=== PATIENT | male | born 1955 | race Caucasian/White ===

== ENCOUNTER → 2018-03-04 | Outpatient (CLI) | payer OTHER ==
[~2018-03-04] VITALS: Ht 175.3 cm; Wt 104.3 kg
[~2018-03-04] MED LIST: ASPI81TA59 PO; LISI-338 PO; METO25TA2 PO; REGADENOSON 0.4 MG/5 ML DISP.SYRIN. IV ONE
--- NOTE | 2018-03-04 11:42 | CARD ---
MR#: [id number] Date of Study: 03/04/2018 Ordering Physician: XAVIER GALDAMEZ, Referring Physician: XAVIER GALDAMEZ, Tech: Marilee Branham APPROVED REPORT EXAM: Two-dimensional and M-mode echocardiogram with Doppler and color Doppler. Other Information Quality : GoodHR: 68bpm INDICATION Atrial Fibrillation RISK FACTORS Hypertension 2D DIMENSIONS RVDd2.3 (2.9-3.5cm)Left Atrium(2D)3.7 (1.6-4.0cm) IVSd1.2 (0.7-1.1cm)Aortic Root(2D)3.1 (2.0-3.7cm) LVDd4.9 (3.9-5.9cm)LVOT Diameter2.3 (1.8-2.4cm) PWd1.4 (0.7-1.1cm)LVDs2.8 (2.5-4.0cm) FS (%) 42.2 %SV83.5 ml Aortic Valve AoV Peak David.129.3cm/sAoV VTI24.5cm AO Peak GR.6.7mmHgLVOT Peak David.119.4cm/s LVOT VTI 25.38cmAO Mean GR.4mmHg JASON (VMAX)3.41uq4XNM (VTI)4.20cm2 Mitral Valve MV E Mcxogtli19.5cm/sMV DECEL [id number] MV A Cdplvryl67.5cm/sE/A Ratio0.8 Tricuspid Valve TR P. Erplmtvr053du/sRAP HPXEMLZU0qeJh TR Peak Gr.94saHhARDI91tgGn Pulmonary Vein S1 Zbuqnvxr70.0cm/sD2 Cftfeofj29.5cm/s LEFT VENTRICLE The Left Ventricle is at the upper limit of normal size. There is borderline concentric left ventricu lar hypertrophy. The left ventricular systolic function is normal and the ejection fraction is within normal range. The Ejection Fraction is 60-65%. There is normal LV segmental wall motion. Transmitral Doppler flow pattern is Grade I-abnormal relaxation pattern. RIGHT VENTRICLE The right ventricle is normal size. There is normal right ventricular wall thickness. The right ventr icular systolic function is normal. ATRIA The left atrium size is normal. The right atrium size is normal. The interatrial septum is intact wit h no evidence for an atrial septal defect or patent foramen ovale as noted on 2-D or Doppler imaging. AORTIC VALVE The aortic valve is mildly thickened but opens well. Doppler and Color Flow revealed no significant a ortic regurgitation. There is no significant aortic valvular stenosis. MITRAL VALVE The mitral valve is normal in structure and function. There is no mitral valve stenosis. Doppler and Color Flow revealed no mitral valve regurgitation noted. TRICUSPID VALVE The tricuspid valve is normal in structure and function. Doppler and Color Flow revealed trace tricus pid regurgitation. Estimated PAP 36 mmHg. PULMONIC VALVE Doppler and Color Flow revealed no pulmonic valvular regurgitation. GREAT VESSELS The aortic root is normal in size. Normal pulmonary venous flow (Doppler). The IVC is normal in size and collapses >50% with inspiration. PERICARDIAL EFFUSION There is no evidence of significant pericardial effusion. Critical Notification Critical Value: No <Conclusion> The Left Ventricle is at the upper limit of normal size. The left ventricular systolic function is normal and the ejection fraction is within normal range. The Ejection Fraction is 60-65%. There is borderline concentric left ventricular hypertrophy. There is no significant aortic valvular stenosis. Doppler and Color Flow revealed no significant aortic regurgitation. Doppler and Color Flow revealed no mitral valve regurgitation noted. Doppler and Color Flow revealed trace tricuspid regurgitation. Estimated PAP 36 mmHg. Signed by : Geovani Red MD Electronically Approved : 03/04/2018 11:41:27
--- NOTE | 2018-03-04 14:28 | RAD ---
MR#: [id number] Date of Study: 03/04/2018 Ordering Physician: XAVIER GALDAMEZ, Referring Physician: CHASIDY SÁNCHEZ Tech: JAMES Ngo ARRT (R) (N) APPROVED REPORT Test Type: Pharmacological Stress Nurse/Tech: JAQUELIN Gtz/BRANDON Ngo Test Indications: a-fib Cardiac History: See Electronic Medical Record Medications: See Electronic Medical Record Medical History: See Electronic Medical Record Resting ECG: SR Resting Heart Rate: 60 bpm Resting Blood Pressure: 129/68mmHg Pretest Chest Pain: None Nurse/Tech Notes SR, NO ACUTE CHANGES Pharm. Details Pharmacologic stress testing was performed using 0.4mg per 5ml of regadenoson given intravenously ove r 7-10 seconds. Stress Symptoms No chest pain or symptoms. POST EXERCISE Reason for Termination: Infusion complete Target HR: Yes Max HR: 139 bpm 103% of Maximum Predicted HR: 134 bpm Exercise duration: 6 min:sec, Stage Max Blood Pressure: 145/66mmHg Blood Pressure response to exercise: Normal blood pressure response during stress. Chest Pain: No. Arrhythmia: No. ST Change: No. INTERPRETATION Stress EKG Conclusion: Baseline EKG showed sinus rhythm. No ischemic changes at peak stress. No arr hythmias. Imaging Protocol IMAGE PROTOCOL: Rest Tc-99m/stress Tc-99m 1 day Rest: Stress: Viability: Radiopharm.Tc99m WbrpbkpjlEt87e Sestamibi Dose11.7mCi 34mCi Img Date 03/04/2018 03/04/2018 Inj-Img Khro00pkb. 90min. Rest Admin Site:IV - Left AntecubitalAdministrator: JAMES Ngo ARRT (R)(N) Stress Admin Site: IV - Left AntecubitalAdministrator: JAMES Ngo ARRT (R)(N) STRESS DATA End Diast. Vol.102.0mlAv. Heart Rate67.0bpm LVEDV index BSA2.0mlCardiac Output0.1L/min End Syst. Vol.15.0mlCO Index BSA5.8L/min LVESV index BSA0.0mlMyocardial Ffwy619.0g Eject. Kezkrgnn15.0% Stress Rates Pk. Fill Rate2.77EDV/secLVtime Pk. Fill 140.08msec Pk. Empty Rate3.98ESV/secLVtime Pk. Niynz784.45msec 1/3 Pk. Fill1.72EDV/sec Stress Scores Regional WT0.00Summed WT0.00 Regional WM0.00Summed WM0.00 Study quality was good. Left Ventricular size was Normal at Rest and Stress. Lung uptake was . Left Ventricular ejection fraction is 85%. The rest and stress images show normal perfusion, normal contraction and thickening. LV Perf. Quant 17 Seg. SSS3.00 17 Seg. SRS2.00 17 Seg. SDS2.00 Stress Defect Extent (% LAD)0.00Rest Defect Extent (% LAD)3.10Rev. Defect Extent (% LAD)0.00 Stress Defect Extent (% LCX) 21.30Rest Defect Extent (% LCX)0.00Rev. Defect Extent (% LCX)12.50 Stress Defect Extent (% RCA)0.00Rest Defect Extent (% RCA)0.00Rev. Defect Extent (% RCA)0.00 Stress Defect Extent (% ALEKSANDRA)3.70Rest Defect Extent (% ALEKSANDRA)2.00Rev. Defect Extent (% ALEKSANDRA)2.20 Conclusion 1. Regadenoson cardioisotope stress test did not show any evidence of ischemia or infarct. 2. Normal left ventricular systolic function with ejection fraction calculated at 85%. 3. Low risk for cardiac events. Signed by : Xavier Galdamez, Electronically Approved : 03/04/2018 14:27:20
== END | disposition home or self-care (01) ==
LOC: NM 07:46
PROVIDERS: ATTEND Internal Medicine Cardiovascular Disease
DX: I48.91 Unspecified atrial fibrillation (principal); I10 Essential (primary) hypertension; Z79.01 Long term (current) use of anticoagulants
CPT/HCPCS: 78452; 93017; 93306; 96374; 96375; 96376; A9500; J2785